=== PATIENT | female | born 1990 | race Two or more races ===

== ENCOUNTER 2019-01-25 13:16 | Emergency (ER) | payer BC ==
[~2019-01-25] VITALS: Ht 167.6 cm; Wt 79.4 kg
[2019-01-25 13:16] VITALS: BP 143/92
== END 2019-01-25 13:54 | disposition home or self-care (01) ==
LOC: ER 13:16
DX: L20.9 Atopic dermatitis, unspecified (principal); I10 Essential (primary) hypertension; Z88.6 Allergy status to analgesic agent